=== PATIENT | female | born 1990 | race Caucasian/White ===

== ENCOUNTER 2025-02-11 09:56 | Inpatient (IN) | payer OTHER, SELFPAY ==
[2025-02-11 10:27] VITALS: BP 113/71; BMI 37.3
[2025-02-11 10:49] LABS: % Basophils 0.3 % (0-2); % Eosinophils 0.1 % (0-6); % Immature Granulocytes 0.8 % (0-0.5); % Monocytes 4.9 % (1.7-9.3); % Neutrophils 82.9 % (42.2-75.2); Absolute Immature Granulocytes 0.1 10^3/uL (0-0.05); Absolute Lymphocytes 1.5 10^3/uL (1.2-3.4); Absolute Monocytes 0.7 10^3/uL (0.1-0.6); Absolute Neutrophils 11.6 10^3/uL (1.4-6.5); Hematocrit 36.4 % (37.0-47.0); Hemoglobin 12.3 g/dL (12.0-16.0); Mean Corp Hgb Conc. 33.8 g/dL (33.0-37.0); Mean Corpuscular Hgb 30.3 pg (27.0-31.0); Mean Corpuscular Volume 89.7 fL (81.0-99.0); Mean Platelet Volume 10.5 fL (7.4-10.4); Nucleated Red Blood Cells % 0 %; Platelet Count 265 10^3/uL (130-400); Red Blood Cell Count 4.06 10^6/uL (4.20-5.40)
[2025-02-11] MEDS: PENICILLIN 110 UNITS IV (11:13)
[2025-02-11] MEDS: LR 1000 IV ×2 (11:14→18:09)
[2025-02-11] MEDS: PITOCIN 30 UNITS/NSS 500 ML IV (12:37)
[2025-02-11] MEDS: PENICILLIN 55 UNITS IV (15:42)
[2025-02-11] MEDS: PENICILLIN IV (21:13)
[2025-02-12] MEDS: SUBLIMAZE 100 MCG EPIDURAL (00:52)
[2025-02-12] MEDS: FENTANYL/BUPIVACAINE 100 EPIDURAL (00:53)
[2025-02-12] MEDS: LR 1000 IV ×2 (01:23→06:15)
[2025-02-12] MEDS: PITOCIN 30 UNITS/NSS 500 ML IV ×2 (07:26→08:13)
[2025-02-12] MEDS: PRENATAL PLUS 1 TABLET PO (22:40)
[2025-02-13 05:48] LABS: Hematocrit 31.6 % (37.0-47.0); Hemoglobin 10.6 g/dL (12.0-16.0)
[2025-02-13] MEDS: PRENATAL PLUS 1 TABLET PO (22:32)
[2025-02-16 14:10] LABS: Syphilis/T. pallidum Ab Reflex Negative (Negative)
== END 2025-02-14 11:47 | disposition home or self-care (01) | DRG 807 ==
LOC: LDRP 09:56
PROVIDERS: ADMITTING PHYSICIAN Obstetrics & Gynecology
PROC: 10E0XZZ Delivery of Products of Conception, External Approach (ICD-10-PCS; 2025-02-12)
DX: O42.013 Preterm premature rupture of membranes, onset of labor within 24 hours of rupture, third trimester (principal); Z37.0 Single live birth; Z3A.36 36 weeks gestation of pregnancy; O99.214 Obesity complicating childbirth
CPT/HCPCS: 88307; 85014; 85018; 85025; 86780; 86850; 86900; 86901